=== PATIENT | female | born 1990 | race Caucasian/White ===

== ENCOUNTER → 2019-07-16 | Outpatient (CLI) | payer BC ==
[2019-07-16 10:29] LABS: Basophils # (auto) 0 uL; Basophils % (auto) 0.2 % (0.0-2.0); Eosinophils # (auto) 0.2 uL; Eosinophils % (auto) 2.8 % (0.0-7.0); Hematocrit 41.5 % (36.0-46.0); Hemoglobin 14.1 g/dL (12.2-16.2); Lymphocytes # (auto) 2.1 uL; Lymphocytes % (auto) 26.4 % (10.0-50.0); Mean Corpuscular Hemoglobin 31.5 pg (28.0-32.0); Mean Corpuscular Hgb Conc. 34.1 g/dL (32.0-36.0); Mean Corpuscular Volume 92.4 fL (80.0-100.0); Monocytes # (auto) 0.4 uL; Monocytes % (auto) 4.9 % (0.0-12.0); Neutrophils # (auto) 5.1 uL; Neutrophils % (auto) 65.7 % (37.0-80.0); Platelet Count (auto) 185 10^3/uL (140-450); Red Blood Cells 4.49 10^6/uL (4.0-5.20); Red Cell Distribution Width 12.6 % (11.8-14.3); White Blood Cell 7.8 10^3/uL (4.4-10.8)
[2019-07-16 10:52] LABS: Alcohol, Urine < 3.0 mg/dL (0-5); Amphetamine Screen, Urine NEGATIVE (NEGATIVE); Barbiturate Scree,Urine NEGATIVE (NEGATIVE); Benzodiazephine Screen, Urine NEGATIVE (NEGATIVE); Cannabinoid Screen, Urine NEGATIVE (NEGATIVE); Cocaine Screen, Urine NEGATIVE (NEGATIVE); Opiate Scree,Urine NEGATIVE (NEGATIVE); Phencyclidine Screen, Urine NEGATIVE (NEGATIVE)
[2019-07-17 05:07] LABS: RPR Non Reactive (Non Reactive)
== END | disposition home or self-care (01) ==
LOC: LAB 09:21
PROVIDERS: ATTEND Obstetrics & Gynecology
DX: Z34.02 Encounter for supervision of normal first pregnancy, second trimester (principal); Z3A.10 10 weeks gestation of pregnancy
CPT/HCPCS: 36415; 80307; 81220; 83036; 84112; 84144; 84702; 85025; 86592; 86703; 86762; 86850; 86900; 86901; 87086; 87340

== ENCOUNTER → 2019-11-04 | Outpatient (CLI) | payer BC ==
[2019-11-04 08:51] LABS: Basophils # (auto) 0 10 ^3/uL (0-0.2); Basophils % (auto) 0.2 % (0.0-2.0); Eosinophils # (auto) 0.2 10 ^3/uL (0-0.8); Hemoglobin 11.7 g/dL (12.2-16.2); Lymphocytes # (auto) 1.3 10 ^3/uL (0.4-5.4); Lymphocytes % (auto) 13.5 % (10.0-50.0); Mean Corpuscular Hemoglobin 32.6 pg (28.0-32.0); Mean Corpuscular Hgb Conc. 34.5 g/dL (32.0-36.0); Mean Corpuscular Volume 94.5 fL (80.0-100.0); Monocytes # (auto) 0.5 10 ^3/uL (0-1.3); Monocytes % (auto) 5.2 % (0.0-12.0); Neutrophils # (auto) 7.8 10 ^3/uL (1.6-8.6); Neutrophils % (auto) 79.1 % (37.0-80.0); Platelet Count (auto) 184 10^3/uL (140-450); Red Cell Distribution Width 13.3 % (11.8-14.3); White Blood Cell 9.9 10^3/uL (4.4-10.8)
== END | disposition home or self-care (01) ==
LOC: LAB 08:28
PROVIDERS: ATTEND Obstetrics & Gynecology
DX: O99.810 Abnormal glucose complicating pregnancy (principal); Z3A.27 27 weeks gestation of pregnancy
CPT/HCPCS: 36415; 82951; 85025

== ENCOUNTER → 2019-11-14 | Outpatient (CLI) | payer BC ==
[2019-11-14 08:08] LABS: Basophils # (auto) 0 10 ^3/uL (0-0.2); Basophils % (auto) 0.1 % (0.0-2.0); Eosinophils # (auto) 0.2 10 ^3/uL (0-0.8); Eosinophils % (auto) 1.9 % (0.0-7.0); Hematocrit 34.5 % (36.0-46.0); Hemoglobin 11.8 g/dL (12.2-16.2); Lymphocytes # (auto) 1.5 10 ^3/uL (0.4-5.4); Lymphocytes % (auto) 15.3 % (10.0-50.0); Mean Corpuscular Hemoglobin 32.4 pg (28.0-32.0); Mean Corpuscular Volume 95.2 fL (80.0-100.0); Monocytes # (auto) 0.5 10 ^3/uL (0-1.3); Monocytes % (auto) 4.8 % (0.0-12.0); Neutrophils # (auto) 7.7 10 ^3/uL (1.6-8.6); Neutrophils % (auto) 77.9 % (37.0-80.0); Platelet Count (auto) 182 10^3/uL (140-450); Red Blood Cells 3.63 10^6/uL (4.0-5.20); Red Cell Distribution Width 13.3 % (11.8-14.3); White Blood Cell 9.9 10^3/uL (4.4-10.8)
== END | disposition home or self-care (01) ==
LOC: LAB 07:05
PROVIDERS: ATTEND Obstetrics & Gynecology
DX: Z34.83 Encounter for supervision of other normal pregnancy, third trimester (principal); Z3A.28 28 weeks gestation of pregnancy
CPT/HCPCS: 36415; 82951; 85025

== ENCOUNTER → 2020-01-06 | Outpatient (CLI) | payer BC ==
[2020-01-06 09:00] LABS: Basophils # (auto) 0 10 ^3/uL (0-0.2); Basophils % (auto) 0.1 % (0.0-2.0); Eosinophils # (auto) 0.1 10 ^3/uL (0-0.8); Hematocrit 38.2 % (36.0-46.0); Hemoglobin 12.8 g/dL (12.2-16.2); Lymphocytes # (auto) 1.2 10 ^3/uL (0.4-5.4); Lymphocytes % (auto) 11.7 % (10.0-50.0); Mean Corpuscular Hemoglobin 31.9 pg (28.0-32.0); Mean Corpuscular Hgb Conc. 33.5 g/dL (32.0-36.0); Mean Corpuscular Volume 95.3 fL (80.0-100.0); Monocytes # (auto) 0.4 10 ^3/uL (0-1.3); Monocytes % (auto) 4.2 % (0.0-12.0); Neutrophils # (auto) 8.3 10 ^3/uL (1.6-8.6); Platelet Count (auto) 176 10^3/uL (140-450); Red Blood Cells 4.01 10^6/uL (4.0-5.20); Red Cell Distribution Width 13.3 % (11.8-14.3)
[2020-01-07 05:07] LABS: RPR Non Reactive (Non Reactive)
== END | disposition home or self-care (01) ==
LOC: LAB 08:43
PROVIDERS: ATTEND Obstetrics & Gynecology
DX: Z34.00 Encounter for supervision of normal first pregnancy, unspecified trimester (principal); Z3A.00 Weeks of gestation of pregnancy not specified
CPT/HCPCS: 36415; 84112; 85025; 86592

== ENCOUNTER 2020-02-05 10:04 | Observation (INO) | payer BC ==
[2020-02-05] MEDS ORDERED: PREN-129 OR (12:18)
== END 2020-02-05 13:05 | disposition home or self-care (01) | DRG 833 ==
LOC: LDRP 10:04
PROVIDERS: ADMIT Specialist; ATTEND Specialist
DX: O48.0 Post-term pregnancy (principal); Z3A.40 40 weeks gestation of pregnancy
CPT/HCPCS: 59025; 76818; 81002; G0378

== ENCOUNTER 2020-02-07 11:00 | Observation (INO) | payer BC ==
[~2020-02-07 11:00] MED LIST: PREN-129 OR
== END 2020-02-07 13:40 | disposition home or self-care (01) | DRG 833 ==
LOC: LDRP 11:00
PROVIDERS: ADMIT Obstetrics & Gynecology; ATTEND Obstetrics & Gynecology
DX: O48.0 Post-term pregnancy (principal); Z3A.40 40 weeks gestation of pregnancy
CPT/HCPCS: 59025; 76818; 81002; G0378

== ENCOUNTER 2020-02-09 10:55 | Inpatient (IN) | payer BC ==
[~2020-02-09] VITALS: Ht 170.2 cm; Wt 72.1 kg
[2020-02-09] MEDS ORDERED: LACT. RINGERS/OXYTOCIN 20UNITS 1,000 ML IV SCH (11:01)
[2020-02-09] MEDS ORDERED: PHISODERM TOP SOLN 240ML BTL TOP PRN (11:15)
[2020-02-09] MEDS ORDERED: NALBUPHINE HCL 10 MG/1ml INJECTION IV PRN (11:15)
[2020-02-09] MEDS ORDERED: CARBOPROST TROMETHAMINE 250 MCG/1ML VIAL IM PRN (11:15)
[2020-02-09] MEDS ORDERED: DERMOPLAST 60ML BOTTLE TOP PRN (11:15)
[2020-02-09] MEDS ORDERED: WITCH HAZEL-GLYCERIN PAD TOP PRN (11:15)
[2020-02-09] MEDS ORDERED: METHYLERGONOVINE MALEATE 0.2 MG/ML AMP IM PRN (11:15)
[2020-02-09] MEDS ORDERED: LIDOCAINE 2%HCL (LOCAL ANESTH.) INJ 20ML MDV ID PRN (11:15)
[2020-02-09 11:49] LABS: Basophils # (auto) 0 10 ^3/uL (0-0.2); Basophils % (auto) 0.2 % (0.0-2.0); Eosinophils # (auto) 0.1 10 ^3/uL (0-0.8); Eosinophils % (auto) 1.1 % (0.0-7.0); Hematocrit 36.1 % (36.0-46.0); Hemoglobin 12.2 g/dL (12.2-16.2); Lymphocytes # (auto) 1.3 10 ^3/uL (0.4-5.4); Mean Corpuscular Hgb Conc. 33.8 g/dL (32.0-36.0); Mean Corpuscular Volume 94.4 fL (80.0-100.0); Monocytes # (auto) 0.6 10 ^3/uL (0-1.3); Monocytes % (auto) 6.1 % (0.0-12.0); Neutrophils # (auto) 7.8 10 ^3/uL (1.6-8.6); Neutrophils % (auto) 79.6 % (37.0-80.0); Nucleated Red Blood Cells % 0.1 %; Platelet Count (auto) 165 10^3/uL (140-450); Red Blood Cells 3.82 10^6/uL (4.0-5.20); Red Cell Distribution Width 13.6 % (11.8-14.3); White Blood Cell 9.8 10^3/uL (4.4-10.8)
[2020-02-09 11:51] LABS: Urine Bacteria MANY /hpf (None Seen); Urine Blood TRACE /uL (Negative); Urine Hyaline Cast FEW /lpf (0 - 2); Urine Specific Gravity 1.004 (1.001-1.035); Urine WBC 209 /hpf (0 - 5)
[2020-02-09] MEDS: LACTATED RINGER'S 1,000 ML IV SCH ×3 (11:53→22:15)
[2020-02-09 12:04] LABS: Albumin 2.7 g/dL (3.4-5.0); Calcium 8.7 mg/dL (8.5-10.1); Potassium 3.1 mmol/L (3.5-5.1)
[2020-02-09 12:05] LABS: INR 0.95 (0.9-1.15); Partial Thromboplastin Time 26.2 sec (23.64-32.05)
[2020-02-09 12:08] LABS: BUN/Creatinine Ratio 11.5; Bilirubin, Total 0.9 mg/dL (0.2-1.0); Total Protein 6.8 g/dL (6.4-8.2)
[2020-02-09] MEDS: miSOPROStol 50 MCG per PRE-CUT 1/2 TAB PO PRN ×2 (12:40→16:57)
[2020-02-09] MEDS ORDERED: POTASSIUM CHL 20 Meq TABLET PO ONE (12:45)
[2020-02-09] MEDS ORDERED: BUTORPHANOL TARTRATE 2 MG/1 ML VIAL IV PRN (21:30)
[2020-02-09] MEDS ORDERED: PROMETHAZINE HCL 25 MG/ML 1ML IM ONE (21:30)
[2020-02-10] MEDS ORDERED: LACTATED RINGER'S 1,000 ML IV ONE (00:46)
[2020-02-10] MEDS ORDERED: ePHEDrine SULFATE 50 MG/ML AMP IV ONE (01:00)
[2020-02-10] MEDS ORDERED: NALOXONE HCL 0.4 MG/ML VIAL IV ONE (01:00)
[2020-02-10] MEDS ORDERED: fentaNYL 200mCg/100ml W ROPIVA 100 ML EPI SCH (01:00)
[2020-02-10] MEDS: LACTATED RINGER'S 1,000 ML IV SCH (06:31)
[2020-02-10] MEDS ORDERED: ONDANSETRON HCL 4 MG/2 ML VIAL ONE (09:54)
[2020-02-10] MEDS ORDERED: ONDANSETRON HCL 4 MG/2 ML VIAL IV PRN ×2 (10:00→12:00)
--- NOTE | 2020-02-10 11:15 | NUR ---
Ambulation: Patient OOB with standby assistance by RN. Patient ambulated to bathroom with steady gait. Patient able to void without difficulty. Pericare teaching provided with returned demonstration by patient. Clean gown provided and bed linen changed. Patient ambulated back to bed with steady gait and no distress noted.
[2020-02-10] MEDS ORDERED: ACETAMINOPHEN 325 MG TAB PO PRN (12:00)
[2020-02-10] MEDS ORDERED: LACT. RINGERS/OXYTOCIN 20UNITS 500 ML IV ONE (12:00)
[2020-02-10] MEDS: IBUPROFEN 600 MG TAB PO PRN ×2 (12:07→20:44)
[2020-02-10] MEDS ORDERED: LACT. RINGERS/OXYTOCIN 20UNITS 1,000 ML IV SCH (13:00)
[2020-02-10 15:30] VITALS: BP 110/53
[2020-02-10 19:00] VITALS: BP 106/64
--- NOTE | 2020-02-10 19:23 | NUR ---
IV removal IV DC'd with clean technique, catheter fully intact. Pressure dressing applied to site. Patient tolerated well. NOTE:
[2020-02-10 23:00] VITALS: BP 101/55
[2020-02-11 03:00] VITALS: BP 111/65
[2020-02-11] MEDS: IBUPROFEN 600 MG TAB PO PRN ×2 (03:06→12:08)
[2020-02-11 07:00] VITALS: BP 108/65
[2020-02-11] MEDS ORDERED: MEASLES, MUMPS & RUBELLA VAC(MMRII) 0.5ML SC ONE (08:00)
--- NOTE | 2020-02-11 09:30 | NUR ---
BREAST PUMP GIVEN TO HELP GERALD NIPPLES FOR BREAST FEEDING. PT IS HAVING ISSUES WITH INFANT LATCHING. THIS RN AT BEDSIDE TO ASSIST. ONCE NIPPLES GERALD TO SLEEPY TO LATCH. INFORMED PT WE WOULD ATTEMPT AGAIN A LITTLE LATER.
[2020-02-11] MEDS ORDERED: DOCUSATE CALCIUM 240 MG CAP PO SCH (10:00)
[2020-02-11 11:00] VITALS: BP 113/68
--- NOTE | 2020-02-11 11:55 | NUR ---
PT GIVEN PUMP AGAIN TO ASSIST IN EVERTING NIPPLES, PUMP IS WORKING WELL AT THIS TIME, IS ABLE TO LATCH BETTER, A COUPLE SUCKS NOTED BEFORE FALLING BACK TO SLEEP.
--- NOTE | 2020-02-11 12:18 | NUR ---
REPORT ON STABLE PT GIVEN TO VARUN BALL RN.
[2020-02-11 12:20] VITALS: BP 113/68
--- NOTE | 2020-02-11 13:00 | NUR ---
Discharge: Discharge instructions given as ordered. Pt encouraged to follow up with PROGRAM OR PROJECT ADMINISTRATOR as instructed. All questions and concerns addressed. Patient verbalized understanding. Medication reconciliation completed and copy given to patient. All required/requested vaccines given and copies of vaccinations given to patient. Patient encouraged to prepare to depart unit.
--- NOTE | 2020-02-11 13:00 | NUR ---
Discharge: Discharge instructions given to mother of baby as ordered. Copies of and hearing screening, along with vaccination record given to mother. Mother encouraged to follow up with It Project Manager of choice and to give envelope with infants information to powersaw supervisor at 1st office visit. All questions and concerns addressed. Mother of baby verbalized understanding and agreed to comply. Mother of baby encouraged to prepare for departure and notify RN ready to leave room for ID band removal/verification and car seat check.
--- NOTE | 2020-02-11 14:00 | NUR ---
Discharge: Patient taken to vehicle via wheelchair with all personal belongings, accompanied by staff and family member. No distress noted at time of departure, no adverse changes in status since initial assessment.
== END 2020-02-11 14:00 | disposition home or self-care (01) | DRG 807 ==
LOC: LDRP 10:55
PROVIDERS: ADMIT Specialist; ATTEND Specialist
PROC: 10E0XZZ Delivery of Products of Conception, External Approach (ICD-10-PCS; principal; 2020-02-10)
PROC: 0KQM0ZZ Repair Perineum Muscle, Open Approach (ICD-10-PCS; 2020-02-10)
PROC: 3E0R3BZ Introduction of Anesthetic Agent into Spinal Canal, Percutaneous Approach (ICD-10-PCS; 2020-02-10)
PROC: 00HU33Z Insertion of Infusion Device into Spinal Canal, Percutaneous Approach (ICD-10-PCS; 2020-02-10)
PROC: 3E0134Z Introduction of Serum, Toxoid and Vaccine into Subcutaneous Tissue, Percutaneous Approach (ICD-10-PCS; 2020-02-11)
DX: O64.0XX0 Obstructed labor due to incomplete rotation of fetal head, not applicable or unspecified (principal); Z37.0 Single live birth; O48.0 Post-term pregnancy; O69.1XX0 Labor and delivery complicated by cord around neck, with compression, not applicable or unspecified; O70.1 Second degree perineal laceration during delivery; Z3A.40 40 weeks gestation of pregnancy; Z23 Encounter for immunization; Z20.828 Contact with and (suspected) exposure to other viral communicable diseases
CPT/HCPCS: 36415; 59409; 80053; 81001; 84112; 85025; 85610; 85730; 86850; 86900; 86901; 96361; 96365; 96366; 96372; G0378; J2405; J2590